=== PATIENT | female | born 1940 | race Caucasian/White ===

== ENCOUNTER 2016-12-30 20:33 | Inpatient (IN) | payer OTHER ==
[~2016-12-30] VITALS: Ht 157.5 cm; Wt 68.6 kg
--- NOTE | ~2016-12-30 | EKG ---
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: Chantelle LONDON : 1940 Requested By: Sid Duffy Order Number: [id number] MD: Cedrick Causey Measurements Intervals [place] Rate: 70 P: 58 ID: 158 QRS: -29 QRSD: 101 T: 55 QT: 396 QTc: 428 Interpretive Statements Sinus rhythm Borderline left axis deviation Abnormal R-wave progression, early transition Minimal ST depression, lateral leads Compared to ECG 12/30/2016 20:37:20 No significant change was found Electronically Signed On 01-01-2017 7:15:18 CDT by Cedrick Causey [email or web address] <ELECTRONICALLY SIGNED> By: Cedrick Causey MD, [facility] 01/01/17 0715 1103 1103 Cedrick Causey MD, [facility] /EPI
--- NOTE | ~2016-12-30 | HC ---
[facility] [place] [address] CONSULTATION Name: EVETTE BROTHERS Room #: 217-P [facility] IN M.R.#: [id number] Admission: 12/30/16 Attend Phys: Sid Duffy MD Discharge: Date of : 42 Report #: [id number] THIS REPORT FOR: //name// CC: Sid Duffy DATE OF SERVICE: 12/31/2016 REASON FOR CONSULTATION: Chest pain. ATTENDING PHYSICIAN: Dr. Duffy. HISTORY OF PRESENT ILLNESS: This is a very pleasant 76-year-old female patient who presented to the Emergency Room due to chest discomfort. The patient states this chest discomfort has been present for 1 week to the point of limiting her activity. She describes it as quite significant, it is at least 6/10 and relieved with rest. She states that it was a fullness sensation, but had a sharp component to it. Upon further questioning, it appears she has been having discomfort even when she was venturing in [place], one episode, she was bicycling and ended up just coasting because it was uncomfortable with the provocation of the symptoms. Upon further questioning, she states that even in the fall, she had some episodes of some "twinges of similar discomfort, but were not long lasting." She did not tell anybody about these episodes. She had no nausea, vomiting, but did have a little bit of shortness of breath. The discomfort was substernal, a fullness sensation associated with dyspnea and it seem to radiate from her anterior chest to her back. She had no nocturnal symptomatology. No palpitations. No dependent or nondependent edema. PAST MEDICAL HISTORY: Significant for, 1. Hypertension. 2. Coronary artery disease having been angioplastied in the distinct past. Most recent assessment was greater than 5 years ago with stress testing. 2. Chronic kidney disease stage I. 3. Left arm melanoma removed. 4. 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 5. Gastroesophageal reflux disease. 6. Meniere disease. 7. Colonic cancer. ALLERGIES: ADHESIVE, LIBRAX, CLINIDIIUM, SULFONAMIDES. MEDICATIONS: At home are spironolactone, aspirin, valsartan, metformin, CoQ10, Centrum Silver, Prilosec, Os-Ren, Lipitor and meclizine. [address] [address] CONSULTATION Name: EVETTE BROTHERS PATY Room #: [address] [place] [address] IN ..#: [id number] Admission: 12/30/16 Attend Phys: Sid Duffy MD Discharge: Date of : 42 Report #: [id number] PAST SURGICAL HISTORY: Significant for: 1. Angioplasties x 3. 2. Bilateral carpal tunnel releases. 3. Multiple skin cancer excisions. 4. Tonsillectomy and adenoidectomy. 5. Hysterectomy with bilateral salpingo-oophorectomy with an AP repair and bladder biopsies. ELECTROCARDIOGRAM: Normal sinus rhythm with some dynamic ST segment changes, but no acute current of injury. LABORATORY DATA: Demonstrated a BUN and creatinine of 19 and 0.9. Troponin of 0.04. H and H are 12.8 and 37.6 with a platelet count of 215,000. RADIOLOGIC: Chest x-ray failed to demonstrate any acute pulmonary process. REVIEW OF SYSTEMS: Except for symptoms previously mentioned and those commensurate with comorbid states, the 10-point review of system is negative. PHYSICAL EXAMINATION: GENERAL: Well-developed, well-nourished white female, resting comfortably in no acute distress. VITAL SIGNS: Noted and reviewed in the chart. HEENT: Normocephalic, atraumatic. Pupils are equal, round, reactive to light and accommodation. Extraocular muscles are intact. Sclerae and conjunctivae are anicteric. NECK: JVD is normal. Carotid upstrokes are bilaterally symmetrical. No bruits are heard. No thyromegaly. No lymphadenopathy. LUNGS: Clear to auscultation. No wheezes, rhonchi or crackles. No CVA tenderness. CARDIAC: Demonstrates a regular rhythm. Normal first and second heart sounds. No ventricular or atrial gallops, no rubs noted. No murmurs. No lifts or heaves, PMI normal. ABDOMEN: Soft, nontender, nondistended. Normal bowel sounds. EXTREMITIES: Without cyanosis, clubbing or edema. Distal pulses are intact. DTR symmetrical. NEUROLOGIC: Cranial nerves 2-12 are grossly normal and symmetrical. PSYCHIATRIC: Alert, oriented with normal affect. SKIN: Warm and dry. IMPRESSION: Chest discomfort, quite suspicious for angina. This is unstable and crescendo in nature. In view of this, I will expedite the diagnosis with proceeding directly to angiography. The risks, complications and alternatives [address] [address] CONSULTATION Name: EVETTE BROTHERS PATY Room #: 217-[facility] IN M.R.#: [id number] Admission: 12/30/16 Attend Phys: Sid Duffy MD Discharge: Date of : 42 Report #: [id number] to cath, angioplasty and conscious sedation have been discussed with the patient. She voices understanding and wishes to proceed. <ELECTRONICALLY SIGNED> By: Delvin Perez MD 01/01/17 2219 1805 2324 Delvin Perez MD /nt
--- NOTE | ~2016-12-30 | EKG ---
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 : 1940 Requested By: Delvin Perez Order Number: [id number] MD: Cedrick Causey Measurements Intervals [place] Rate: 73 P: 48 GA: 166 QRS: -14 QRSD: 95 T: 26 QT: 375 QTc: 414 Interpretive Statements Sinus rhythm Minimal ST depression, anterolateral leads Compared to ECG 12/30/2016 20:37:20 ST (T wave) deviation now present Electronically Signed On 01-01-2017 7:29:21 CDT by Cedrick Causey [email or web address] <ELECTRONICALLY SIGNED> By: Cedrick Causey MD, [facility] 01/01/17 0729 004 Cedrick Causey MD, [facility] /EPI
--- NOTE | ~2016-12-30 | 2DMMODE ---
[place] [address] [facility] [place] [address] 2 D/M-MODE ECHOCARDIOGRAM Name: EVETTE BROTHERS Room #: 217-P ADM IN M.R.#: [id number] Admission: 12/30/16 Attend Phys: Sid Duffy MD Discharge: Date of : 42 Date of Service: 01/01/17 0947 Report #: [id number] THIS REPORT FOR: //name// APPROVED REPORT Study performed: 01/01/2017 08:24:22 EXAM: Comprehensive 2D, Doppler, and color-flow Echocardiogram Patient Location: Bedside Room #: 217 Other Information Study Quality: Adequate Indications CAD Chest Pain Pre-Op 2D Dimensions RVDd: 30.32 mm LVEF(%): 50.10 (>50%) IVSd: 11.58 (7-11mm) LVOT Diam: 19.26 (18-24mm) LVDd: 40.46 mm PWd: 11.54 (7-11mm) Ascending Ao: 28.85 (22-36mm) LVDs: 30.31 (25-40mm) Aortic Root: 25.50 mm IVC: 8.00 mm Khan's LVEF: 50.10 % Volumes Left Atrial Volume (Systole) Single Plane 4CH: 34.24 mL Single Plane 2CH: 48.87 mL LA ESV Index: 27.00 mL/m2 Aortic Valve AoV Peak Ananda.: 2.71 m/s AO Peak Gr.: 30.26 mmHg LVOT Max P.96 mmHg AO Mean Gr.: 14.17 mmHg AO V2 Mean: 1.76 m/s LVOT Max V: 0.70 m/s AO V2 VTI: 51.18 cm CHRISTY Vmax: 0.75 cm2 Mitral Valve E/A Ratio: 0.7 MV Decel. Time: 283.27 ms [facility] [place] [address] 2 D/M-MODE ECHOCARDIOGRAM Name: EVETTE BROTHERS [facility] Room #: 217-P [facility] IN .R.#: [id number] Admission: 12/30/16 Attend Phys: Sid Duffy MD Discharge: Date of : 42 Date of Service: 01/01/17 0947 Report #: [id number] E Max Ananda.: 0.79 m/s MV A Ananda.: 1.16 m/s MV PHT: 82.15 ms IVRT: 121.11 ms Pulmonary Valve PV Peak Ananda.: 0.96 m/s PV Peak Gr.: 3.69 mmHg Pulmonary Vein P Vein S: 0.63 m/s P Vein A: 0.32 m/s P Vein D: 0.61 m/s P Vein A Dur.: 117.6 msec P Vein S/D Ratio: 1.03 Tricuspid Valve RAP Estimate: 5.00 mmHg Left Ventricle The left ventricle is normal size. Borderline concentric left ventricular hypertrophy. The left ventricular systolic function is normal. The left ventricular ejection fraction is within the normal range. LVEF is 55%. Grade I - abnormal relaxation pattern. Right Ventricle The right ventricle is normal size. The right ventricular systolic function is normal. Atria The left atrium size is normal. The right atrium size is normal. Aortic Valve Aortic valve is thickened but has adequate excursion. Trace to mild aortic regurgitation. Mild aortic stenosis. Mitral Valve The mitral valve is normal in structure. Trace mitral regurgitation. No evidence of mitral valve stenosis. Tricuspid Valve The tricuspid valve is normal in structure. Trace tricuspid regurgitation. Pulmonic Valve The pulmonary valve is normal in structure. Trace pulmonic regurgitation. [address] [address] 2 D/M-MODE ECHOCARDIOGRAM Name: VEETTE BROTHERS PATY Room #: 217-P [facility] IN .R.#: [id number] Admission: 12/30/16 Attend Phys: Sid Duffy MD Discharge: Date of : 42 Date of Service: 01/01/17 0947 Report #: [id number] Great Vessels The aortic root is normal in size. The ascending aorta is normal in size. IVC is normal in size and collapses >50% with inspiration. <Conclusion> The left ventricle is normal size. LVEF is 55%. Aortic valve is thickened but has adequate excursion. Trace to mild aortic regurgitation. Mild aortic stenosis. The mitral valve is normal in structure. Trace mitral regurgitation. The tricuspid valve is normal in structure. Trace tricuspid regurgitation. The pulmonary valve is normal in structure. Trace pulmonic regurgitation. <ELECTRONICALLY SIGNED> By: Delvin Perez MD 01/01/1747 6 6 Delvin Perez MD /INF
--- NOTE | ~2016-12-30 | EKG ---
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 : 1940 Requested By: Dav Ace Order Number: [id number] MD: Cedrick Causey Measurements Intervals [place] Rate: 76 P: 42 WV: 132 QRS: -19 QRSD: 78 T: 42 QT: 374 QTc: 421 Interpretive Statements Sinus rhythm Borderline left axis deviation Early R-wave progression Compared to ECG 01/01/2017 00:41:18 ST (T wave) deviation no longer present Electronically Signed On 01-03-2017 16:48:12 CDT by Cedrick Causey [email or web address] <ELECTRONICALLY SIGNED> By: Cedrick Causey MD, [facility] 01/03/17 7598 0745 0745 Cedrick Causey MD, [facility] /EPI
--- NOTE | ~2016-12-30 | O ---
[facility] [place] [address] OPERATIVE REPORT Name: EVETTE BROTHERS Room #: 210-P [facility] IN M.R.#: [id number] Admission: 12/30/16 Attend Phys: Sid Duffy MD Discharge: 01/08/17 Date of : 42 Report #: [id number] THIS REPORT FOR: //name// CC: Delvin Duffy MD DATE OF SERVICE: 01/02/2017 PREOPERATIVE DIAGNOSIS: Coronary artery disease. POSTOPERATIVE DIAGNOSIS: Coronary artery disease. OPERATION: Coronary artery bypass x 5 including left internal mammary artery to left anterior descending artery, saphenous vein to diagonal 1 and diagonal 2 and saphenous vein to posterior descending and posterolateral branches and endoscopic harvest, left greater saphenous vein. SURGEON: Solo Scanlon M.D. FREELANCE ART DIRECTOR: Db. ANESTHESIA: General. INDICATIONS: The patient is a 76-year-old seen for Dr. Sid Duffy and the [facility]iology [facility]. The patient has important 3-vessel coronary artery disease and relatively preserved ventricular function. FINDINGS AND TECHNIQUE: After general anesthesia was established, saphenous vein was harvested using an endoscopic approach and prepared for use as a conduit. Exposure was obtained through median sternotomy. Left internal mammary artery was harvested from chest wall. Pericardial well was made. Cannulation sutures were placed. Heparin was given. Aorta was cannulated. Right atrium was cannulated. Cardioplegia needle was positioned in the aortic root. Retrograde cardioplegic catheter was placed in the coronary sinus. Cardiopulmonary bypass was established. The aorta was cross clamped. Antegrade and retrograde cardioplegia were given. Ice was poured in the pericardial well. The heart was stopped. During electromechanical arrest, the distal anastomoses were performed and end-to-side anastomosis was made between vein and the posterolateral branch of the right coronary. Cold cardioplegia was given. Same segment of vein was sewn in kivh-ct-rzic fashion to the posterior descending branch of the right coronary. Cold cardioplegia was given. A separate segment of vein was sewn [facility] [address] [place] [address] OPERATIVE REPORT Name: EVETTE BROTHERS PATY Room #: 210-P [facility] IN ..#: [id number] Admission: 12/30/16 Attend Phys: Sid Duffy MD Discharge: 01/08/17 Date of : 42 Report #: [id number] end-to-side fashion to second diagonal. Cold cardioplegia was given. Same segment of vein was sewn in amkd-dp-xpxd fashion to first diagonal. Cold cardioplegia was given. Left internal mammary artery was sewn in end-to-side fashion to left anterior descending artery. Patency of this vessel was checked with the temperature technique. Cold cardioplegia was given. Two proximal anastomoses were performed. When these were complete, warm retrograde cardioplegia was given followed by warm continuous blood to the coronary sinus. When this infusion was complete, the crossclamp was removed. De-airing maneuvers were performed. The anastomoses were inspected and found to be satisfactory. As the patient warmed, nice cardiac activity resumed, chest tubes and pacing wires were placed. As the patient warmed, she was weaned from cardiopulmonary bypass. Venous cannula was removed. Protamine was given, the aortic cannula was removed. Flows were measured in the bypass grafts. Flow in the graft to the right side was 18 mL per minute. Flow in the graft to the left side was 45 mL per minute. A good Doppler signal was audible in the internal mammary artery. When hemostasis was satisfactory, chest was irrigated with antibiotic solution and closed in the usual fashion. The patient was taken to the Intensive Care Unit in good condition having tolerated the procedure well. By: 1908 [id number] Solo Scanlon MD /shaheen
--- NOTE | ~2016-12-30 | HC ---
[facility] [place] [address] CONSULTATION Name: EVETTE BROTHERS Room #: 210-P ADM IN M.R.#: [id number] Admission: 12/30/16 Attend Phys: Sid Duffy MD Discharge: Date of : 42 Report #: [id number] THIS REPORT FOR: //name// CC: Sid Duffy DATE OF SERVICE: 01/01/2017 ATTENDING PHYSICIAN: Dr. Duffy. REASON FOR CONSULTATION: Microalbuminuria. HISTORY OF PRESENT ILLNESS: The patient known to our service followed on early basis by Dr. Jorgito Urbina in our office for microalbuminuria. She has known diabetes and hypertension. She has minimal microalbuminuria. She is well controlled on angiotensin-receptor brianne, spironolactone. She was admitted with angina, had a heart catheterization, has multiple high-grade get a coronary bypass tomorrow. PAST MEDICAL HISTORY: She has had previous coronary angioplasty x 3, very remotely 28 years ago. She has had bladder cancer, had a transurethral resection there, has had previous hysterectomy, bilateral carpal tunnel surgeries and some skin cancers. HOME MEDICATIONS: Include spironolactone 25 mg daily, aspirin 81 mg daily, valsartan 320 mg daily, metformin 1000 mg b.i.d., omeprazole 20 mg daily, atorvastatin 40 mg daily. REVIEW OF SYSTEMS: GENERAL: Except for the chest pain, she has been feeling well. EYES: Vision is fine. She has got only cataract. ENT: Hearing okay, swallows okay. No mouth sores or ulcers. ENDOCRINE: Positive for the diabetes. RESPIRATORY: No shortness of breath, pleuritic pain, cough or hemoptysis. CARDIAC: Clear cardiac exertional angina, multiple episodes as mentioned. GASTROINTESTINAL: No nausea, vomiting, diarrhea or bloody stools. GENITOURINARY: Good urinary stream without dysuria, renal stones. NEUROLOGIC: No seizure, syncope or stroke or neuropathy. FAMILY HISTORY: Negative. SOCIAL HISTORY: No smoking. Lives at home with her . Extensive history taken from the electronic medical record. Office records were reviewed from the patient, patient has been at bedside. PHYSICAL EXAMINATION: [facility] [address] [place] [address] CONSULTATION Name: EVETTE BROTHERS Room #: 210-[facility] IN M.R.#: [id number] Admission: 12/30/16 Attend Phys: Sid Duffy MD Discharge: Date of : 42 Report #: [id number] GENERAL: This is a reasonably well-appearing lady in no distress. SKIN: Unremarkable. SKELETAL: Nonobese. HEENT: Extraocular movements are full. No scleral icterus. Hearing and vision intact. Mucous membranes are moist, buccal mucosa benign. NECK: Supple, no carotid bruits. CHEST: Clear to auscultation. HEART: Regular. ABDOMEN: Soft, nontender. EXTREMITIES: No edema. Pulses intact. LABORATORY DATA: Creatinine 0.9. UA, benign. ASSESSMENT AND PLAN: 1. Microalbuminuria. She has normal renal function with microalbuminuria. She is at little additional risk with her heart surgery, of course, she is at some risk with her diabetes, hypertension, etc. We will certainly follow along, although expected her to do well. 2. Severe coronary artery disease. She will get coronary bypass. 3. Diabetes mellitus. 4. Hypertension. <ELECTRONICALLY SIGNED> By: Micheal Dominique MD 01/05/17 1012 1206 39 Aiden Leong MD /nt
--- NOTE | ~2016-12-30 | CATHLAB ---
[facility] [place] [address] INVASIVE PROCEDURE REPORT Name: EVETTE BROTHERS Room #: 217-P [facility] IN ..#: [id number] Admission: 12/30/16 Attend Phys: Sid Duffy MD Discharge: Date of : 42 Date of Service: 12/31/162141 Report #: [id number] THIS REPORT FOR: //name// CC: Sid Duffy DATE OF SERVICE: 12/31/2016 INDICATIONS: This is a 76-year-old female patient with crescendo chest pain consistent with unstable angina. PROCEDURES: 1. Left heart catheterization. 2. Left and right coronary angiography. 3. Measurement of left ventricular end diastolic pressures. 4. Selective angiography of the right iliac artery. 5. Supervision of conscious sedation. HEALTH INSURANCE AGENT: Delvin Perez M.D. BRIEF DESCRIPTION OF PROCEDURE: After informed consent was obtained, the patient was brought to the cardiac catheterization laboratory in stable condition. The patient's right groin was prepped and draped in the usual sterile manner after which lidocaine was then instilled. Utilizing a modified Seldinger technique, the right femoral artery was then accessed. Under fluoroscopic visualization using selective coronary catheters, the right and left coronaries were opacified and visualized. The left ventriculogram was likewise imaged per standard protocol with EDP being measured. Subsequent to this, the sheath was removed, hemostasis achieved. The patient tolerated the procedure well. There were no complications. FINDINGS: 1. RHYTHM: The patient's rhythm was sinus throughout the entire procedure. 2. HEMODYNAMICS: a. Aortic pressure 136/74. b. Left ventricular end diastolic pressures 20-25. 3. FLUOROSCOPY: Under fluoroscopic visualization, there was extensive calcific plaquing of the epicardial coronary arteries. No calcific plaquing on the valvular or intramyocardial structures of the heart. 4. ANGIOGRAPHY: a. Left main is of normal origin and caliber, bifurcates left anterior descending and left circumflex is free of high-grade disease. b. Left anterior descending is a moderate caliber type 3 vessel which has a 70% lesion in the proximal mid segment. The first diagonal branch is a moderate caliber vessel, which courses in the anterior interventricular sulcus, had a 99% ostial lesion. Septal perforators were identified without significant high-grade lesions. Left anterior descending continues in the [facility] [address] [place] [address] INVASIVE PROCEDURE REPORT Name: EVETTE BROTHERS Room #: 217-P [facility] IN .R.#: [id number] Admission: 12/30/16 Attend Phys: Sid Duffy MD Discharge: Date of : 42 Date of Service: 12/31/16 214 Report #: [id number] interventricular sulcus without significant high-grade lesions noted as it hooks the apex and terminates in the posterior aspect of the left ventricle. c. Left circumflex is a small nondominant vessel. It only has luminal irregularities noted. d. Right coronary artery is a large caliber vessel, which is of normal origin. It is dominant and proceeds in the AV groove. Prior to the acute margin, there is an eccentric high grade lesion of approximately 95-99%. There is some haziness, which is consistent with some degree of thrombus. The vessel then reconstitutes itself and continues posteriorly giving rise to posterior descending artery and large posterior wall circulation without high-grade obstructive lesions. e. Iliac artery angiography: The vessel is imaged retrograde and showed a complete occlusion in the junction of the iliac and femoral arteries. IMPRESSION: 1. Coronary artery disease, severe, 3-vessel. 2. Totally occluded right iliac artery. 3. Abnormal hemodynamics with elevated left ventricular end-diastolic pressures. 4. In view of the patient's significant calcified high-grade disease, it is felt that surgically be pursued. <ELECTRONICALLY SIGNED> By: Delvin Perez MD 01/01/17 2219 2142 0228 Delvin Perez MD /nt
--- NOTE | ~2016-12-30 | HC ---
[facility] [place] [address] CONSULTATION Name: EVETTE BROTHERS Room #: 217-P ADM IN M.R.#: [id number] Admission: 12/30/16 Attend Phys: Sid Duffy MD Discharge: Date of : 44 Report #: [id number] THIS REPORT FOR: //name// CC: Sid Duffy DATE OF SERVICE: 01/01/2017 We were asked by Dr. Duffy and (Dr. Perez) see the patient. HISTORY OF PRESENT ILLNESS: The patient is a 76-year-old with coronary artery disease. The patient was admitted through the emergency department on 12/30/2016. The patient has had severe intermittent chest pain described as mid sternal radiating to the abdomen and then back to the chest. The patient initially thought that this was indigestion, but when it persisted on , the patient it was cardiac and came to the emergency department. The patient states that she has had difficulty with shortness of breath on exertion recently. The patient cannot climb a flight of stairs without shortness of breath and some chest discomfort. PAST MEDICAL HISTORY: Significant for coronary artery disease with angioplasty (without stent placement) in the past at [facility]. The patient also has diabetes, hypertension, and hypercholesterolemia. The patient was treated for bladder cancer with BCG and is due for an instillation. MEDICATIONS AT HOME: Includes spironolactone, aspirin, losartan, valsartan, metformin, ubidecarenone, multivitamins, omeprazole, calcium, vitamin D, meclizine, and atorvastatin. ALLERGIES: ADHESIVE causes blisters, CHLORDIAZEPOXIDE, CLIDINIUM, SULFA, and CODEINE. SOCIAL HISTORY: The patient is a nonsmoker. 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 FAMILY HISTORY: Positive for coronary artery disease. Father in his mid 60s and a brother in his 50s of coronary artery disease. REVIEW OF SYSTEMS: CONSTITUTIONAL: No fever, chills, or weight change. EYES: No eye pain, visual change, or wears glasses. HENT: No hearing changes, nasal or ear drainage, neck pain, or sore throat. RESPIRATORY: Denies shortness of breath, sputum production. CARDIAC: As mentioned angina, fatigue, and shortness of breath on exertion. GASTROINTESTINAL: No nausea, vomiting, diarrhea, or blood. GENITOURINARY: No burning, frequency, or urgency. [facility] [address] [place] [address] CONSULTATION Name: EVETTE BROTHERS Room #: 217-P [facility] IN .R.#: [id number] Admission: 12/30/16 Attend Phys: Sid Duffy MD Discharge: Date of : 44 Report #: [id number] MUSCULOSKELETAL: No bone or joint pain. SKIN: No rash or infection. NEUROLOGIC: No motor or sensory dysfunction. No headache. PHYSICAL EXAMINATION: VITAL SIGNS: Temperature 37, pulse rate 79, respiratory rate 20, blood pressure 139/92, and O2 sat 99. GENERAL: The patient is an elderly looking woman who is lying in bed with no particular discomfort, somewhat deconditioned appearing. HEENT: No scleral icterus. No arcus. Pupils are equal, round, and reactive. NECK: No mass. No bruit. CHEST: Clear to auscultation. HEART: Rhythm regular with an aortic systolic murmur grade 1/6. ABDOMEN: Soft, no mass, no tenderness. EXTREMITIES: No clubbing, cyanosis, or edema. 1-2+ popliteal pulses bilaterally. No obvious saphenous vein problems. SKIN: No rash or infection. NEUROLOGIC: No motor or sensory dysfunction. MUSCULOSKELETAL: No bone or joint deformity or dyssymmetry of significant. PSYCHIATRIC: Shows insight into problem and seems quite aware of what is going on and appropriate. ASSESSMENT: The patient has coronary artery disease, catheterization demonstrated severe left anterior descending, diagonal and right coronary stenosis. Circumflex is nondominant and has trivial disease. No assessment of left ventricular function is available at this time, but an echo is pending. We have recommended coronary artery bypass surgery. Risks and details of this were discussed. Options and alternatives were reviewed. We note the patient is on Integrilin and heparin and some planning will need to be done for surgery. We will try to arrange the time with the operating room and failing this, we will try to get the patient treated appropriately. Thank you for the consult. By: [id number] [id number] Solo Scanlon MD /nt
--- NOTE | ~2016-12-30 | EKG ---
[place] [address] [facility] [place] [address] ELECTROCARDIOGRAM REPORT Name: EVETTE BROTHERS Room #: 312-P ADM IN M.R.#: [id number] Admission: 12/30/16 Attend Phys: Sid Duffy MD Discharge: Date of : 42 Report #: [id number] THIS REPORT FOR: //name// [facility] ED Test Date: 2016-12-30 Test Time: 20:37:20 Pat Name: EVETTE BROTHERS Department: Room: [facility] Gender: F Doctor Of Chiropractic: CRYSTAL : 1940 Requested By: Scarlet Parekh Order Number: [id number] MD: Cedrick Causey Measurements Intervals [place] Rate: 88 P: 54 AL: 165 QRS: -20 QRSD: 89 T: 71 QT: 354 QTc: 429 Interpretive Statements Sinus rhythm Probable left atrial enlargement Borderline left axis deviation Nonspecific repol abnormality Compared to ECG 02/29/2016 08:19:[address] segment abnormality is more pronounced Electronically Signed On 12-31-2016 7:57:04 CDT by Cedrick Causey [email or web address] <ELECTRONICALLY SIGNED> By: Cedrick Causey MD, [facility] 12/31/16 0757 36 36 Cedrick Causey MD, [facility] /EPI
--- NOTE | ~2016-12-30 | EKG ---
[address] [employer] [place] [address] ELECTROCARDIOGRAM REPORT Name: EVETTE BROTHERS Room #: 244-P ADM IN M.R.#: [id number] Admission: 12/30/16 Attend Phys: Sid Duffy MD Discharge: Date of : 42 Report #: [id number] THIS REPORT FOR: //name// [facility] Test Date: 2017-01-02 Test Time: 14:50:46 Pat Name: EVETTE BROTHERS Department: Room: 244 Gender: F Mumps Developer: Harpreet MCCORMACK : 1940 Requested By: Dav Ace Order Number: [id number] MD: Cedrick Causey Measurements Intervals [place] Rate: 82 P: 60 [place]: 184 QRS: -6 QRSD: 76 T: 42 QT: 373 QTc: 436 Interpretive Statements Sinus rhythm Low voltage, extremity leads Abnormal R-wave progression, early transition Minimal ST depression, anterior leads Compared to ECG 01/01/2017 00:41:18 ST (T wave) deviation still present Electronically Signed On 01-03-2017 16:40:37 CDT by Cedrick Causey [email or web address] <ELECTRONICALLY SIGNED> By: Cedrick Causey MD, [facility] 01/03/17 1640 1450 1450 Cedrick Causey MD, [facility] /EPI
[~2016-12-30 20:33] MED LIST: ALDACTONE25 MG PO; ALTACE10 MG PO; ASA81BEC PO; ATORVASTATIN CA40 MG PO; CALCIUM 500 +1 EAC5 PO; CENTRUM SILVER1 EAC4 PO; CIPRO500 MG PO; CO Q-10100 M1 PO; COLACE100 MG PO; COQ-10100 MG PO; DIOVAN320 MG PO; FIBER TABS625 MG PO; FISH OIL 1,001000 M2 PO; GAS RELIEF 8080 MG PO; GLUCOPHAGE1000 MG PO; MECLIZINE HCL25 MG PO; PREMARIN VAGI42.5 G1 TOP; PRILOSEC 20 MG20 MG PO; TRAMADOL 50 MG50 MG PO
[2016-12-30 20:34] VITALS: BP 204/104
[2016-12-30 21:20] LABS: ABSOLUTE NEUTROPHILS 3.5 thou/uL (1.4-8.2); BASOPHILS 0.7 % (0.0-2.0); EOSINOPHILS 3.2 % (0.0-3.0); HEMATOCRIT 37.6 % (37.0-47.0); HEMOGLOBIN 12.8 gm/dL (12.0-15.0); LYMPHOCYTES 34.8 % (24.0-44.0); MCHC 34.1 g/dL (28.0-37.0); MCV 90.8 fL (80.0-100.0); MONOCYTES 10.3 % (1.0-8.0); PLATELET COUNT 215 thou/uL (150-400); RBC 4.14 mil/uL (4.20-5.00); RDW 12.9 % (10.5-14.5); WBC 6.9 thou/uL (4.0-11.0)
[2016-12-30 21:23] LABS: MANUAL DIFF NO
[2016-12-30 21:29] LABS: ANION GAP 10 mmol/L (7-16); BUN 19 mg/dL (7-18); CALCIUM 9.7 mg/dL (8.5-10.1); CHLORIDE 91 mmol/L (98-107); CO2 29 mmol/L (21-32); CREATININE 0.9 mg/dL (0.6-1.0); GLUCOSE 159 mg/dL (74-106); POTASSIUM 4.2 mmol/L (3.5-5.1); SODIUM 130 mmol/L (136-145)
[2016-12-30 21:37] LABS: TROPONIN-I < 0.04 ng/mL (<0.04-0.07)
[2016-12-30 23:59] VITALS: BP 137/69
[2016-12-31] VITALS (10 sets, daily range): BP systolic 125–167; BP diastolic 44–107
[2016-12-31 13:51] LABS: URINE BILIRUBIN NEGATIVE (Negative); URINE BLOOD NEGATIVE (Negative); URINE COLOR YELLOW; URINE GLUCOSE-RANDOM* NEGATIVE (Negative); URINE KETONES NEGATIVE (Negative); URINE NITRITE NEGATIVE (Negative); URINE PROTEIN (DIPSTICK) NEGATIVE (Negative); URINE UROBILINOGEN 0.2 E.U./dl (0.2-1.0)
[2016-12-31 17:55] LABS: INR 1.1; PROTIME 11.1 Seconds (9.3-11.4)
[2017-01-01] VITALS (9 sets, daily range): BP systolic 59–153; BP diastolic 34–92
[2017-01-01 08:12] LABS: ANION GAP 8 mmol/L (7-16); BUN 13 mg/dL (7-18); CALCIUM 8.6 mg/dL (8.5-10.1); CHLORIDE 98 mmol/L (98-107); CHOLESTEROL 140 mg/dL (<200); CO2 27 mmol/L (21-32); CREATININE 0.9 mg/dL (0.6-1.0); GLUCOSE 121 mg/dL (74-106); HDL CHOLESTEROL 63 mg/dL (>40); LDL CHOLESTEROL 60 mg/dL (<100); POTASSIUM 4.1 mmol/L (3.5-5.1); SODIUM 133 mmol/L (136-145); TC:HDL 2.2 Ratio (Not establshd); TRIGLYCERIDE 85 mg/dL (<150); TROPONIN-I < 0.04 ng/mL (<0.04-0.07); VLDL 17 mg/dL (<40)
[2017-01-01 08:13] LABS: SERUM ASSESSMENT 311
[2017-01-01 13:27] LABS: HEMATOCRIT 36.9 % (37.0-47.0); HEMOGLOBIN 12.9 gm/dL (12.0-15.0); MCH 31.8 pg (26.0-34.0); MCHC 35.1 g/dL (28.0-37.0); MCV 90.7 fL (80.0-100.0); RBC 4.06 mil/uL (4.20-5.00); RDW 13.1 % (10.5-14.5); WBC 6.3 thou/uL (4.0-11.0)
[2017-01-01 13:44] LABS: ALBUMIN 3.7 g/dL (3.4-5.0); CALCIUM 8.8 mg/dL (8.5-10.1); CREATININE 0.9 mg/dL (0.6-1.0); POTASSIUM 3.7 mmol/L (3.5-5.1); TOTAL BILIRUBIN 0.7 mg/dL (<0.1-1.0); TOTAL PROTEIN 7.2 g/dL (6.4-8.2)
[2017-01-01 20:07] LABS: URINE BILIRUBIN NEGATIVE (Negative); URINE BLOOD 2+ (Negative); URINE COLOR YELLOW; URINE GLUCOSE-RANDOM* 1+ (Negative); URINE KETONES NEGATIVE (Negative); URINE LEUKOCYTES-REFLEX NEGATIVE (Negative); URINE PROTEIN (DIPSTICK) TRACE (Negative); URINE SPECIFIC GRAVITY 1.015 (1.003-1.035); URINE UROBILINOGEN 0.2 E.U./dl (0.2-1.0)
[2017-01-01 20:19] LABS: CASTS None Seen /LPF (None Seen); CRYSTALS None Seen /LPF (None Seen); SQUAMOUS 0-3 Few /LPF (0-3); URINE WBC-REFLEX 0-5 Rare /HPF (0-5)
[2017-01-02] VITALS (27 sets, daily range): BP systolic 91–156; BP diastolic 54–94
[2017-01-02 03:18] LABS: GLYCOHEMOGLOBIN (HGB A1C) 6.1 % (4.8-5.6)
[2017-01-02 04:13] LABS: ANION GAP 9 mmol/L (7-16); BUN 12 mg/dL (7-18); CALCIUM 9.2 mg/dL (8.5-10.1); CHLORIDE 101 mmol/L (98-107); CO2 26 mmol/L (21-32); CREATININE 0.8 mg/dL (0.6-1.0); GLUCOSE 134 mg/dL (74-106); POTASSIUM 4.3 mmol/L (3.5-5.1); SODIUM 136 mmol/L (136-145); TROPONIN-I < 0.04 ng/mL (<0.04-0.07)
[2017-01-02 13:08] LABS: HEMATOCRIT 22.5 % (37.0-47.0); MCH 31.4 pg (26.0-34.0); MCV 92.3 fL (80.0-100.0); RBC 2.44 mil/uL (4.20-5.00); RDW 12.6 % (10.5-14.5); WBC 11.6 thou/uL (4.0-11.0)
[2017-01-02 13:16] LABS: HEMOGLOBIN 7.7 gm/dL (12.0-15.0)
[2017-01-02 13:23] LABS: APTT 27.5 Seconds (24.5-32.8); FIBRINOGEN 188.3 mg/dL (210-360); INR 1.3; PROTIME 13.6 Seconds (9.3-11.4)
[2017-01-02 13:47] LABS: POC BE -2 mmol/L (-2.0 to +3.0); POC CA IONIZED 5.1 mg/dL (4.5-5.3); POC FiO2 100 %; POC GLUCOSE 167 mg/dL (70-99); POC HCO3 22.9 mmol/L (22.0-26.0); POC HEMOGLOBIN 8.8 g/dL (12.0-15.0); POC POTASSIUM 4.4 mmol/L (3.5-5.1); POC SODIUM 132 mmol/L (136-145); POC pCO2 39.1 mmHg (35.0-45.0); POC pH 7.375 (7.360-7.450)
[2017-01-02 13:47] LABS: POC BE -4 mmol/L (-2.0 to +3.0); POC CA IONIZED 4.3 mg/dL (4.5-5.3); POC FiO2 100 %; POC GLUCOSE 126 mg/dL (70-99); POC HCO3 22.5 mmol/L (22.0-26.0); POC HEMOGLOBIN 7.8 g/dL (12.0-15.0); POC SODIUM 128 mmol/L (136-145)
[2017-01-02 13:47] LABS: POC BE 2 mmol/L (-2.0 to +3.0); POC CA IONIZED 4.2 mg/dL (4.5-5.3); POC FiO2 80 %; POC GLUCOSE 134 mg/dL (70-99); POC HCO3 25.9 mmol/L (22.0-26.0); POC HEMOGLOBIN 6.8 g/dL (12.0-15.0); POC POTASSIUM 4.7 mmol/L (3.5-5.1); POC SODIUM 129 mmol/L (136-145); POC pCO2 37.6 mmHg (35.0-45.0); POC pH 7.446 (7.360-7.450)
[2017-01-02 13:47] LABS: POC BE 1 mmol/L (-2.0 to +3.0); POC FiO2 100 %; POC GLUCOSE 145 mg/dL (70-99); POC HCO3 25.6 mmol/L (22.0-26.0); POC HEMOGLOBIN 6.5 g/dL (12.0-15.0); POC POTASSIUM 4.8 mmol/L (3.5-5.1); POC SODIUM 127 mmol/L (136-145); POC pCO2 40.4 mmHg (35.0-45.0)
[2017-01-02 13:47] LABS: POC BE 3 mmol/L (-2.0 to +3.0); POC CA IONIZED 4.1 mg/dL (4.5-5.3); POC FiO2 100 %; POC GLUCOSE 149 mg/dL (70-99); POC HCO3 26.7 mmol/L (22.0-26.0); POC HEMOGLOBIN 6.8 g/dL (12.0-15.0); POC POTASSIUM 4.6 mmol/L (3.5-5.1); POC SODIUM 128 mmol/L (136-145); POC pCO2 35.7 mmHg (35.0-45.0); POC pH 7.482 (7.360-7.450)
[2017-01-02 13:47] LABS: POC BE 0 mmol/L (-2.0 to +3.0); POC CA IONIZED 4.3 mg/dL (4.5-5.3); POC FiO2 100 %; POC GLUCOSE 128 mg/dL (70-99); POC HCO3 25.8 mmol/L (22.0-26.0); POC HEMOGLOBIN 7.8 g/dL (12.0-15.0); POC POTASSIUM 3.9 mmol/L (3.5-5.1); POC SODIUM 128 mmol/L (136-145); POC pCO2 51.2 mmHg (35.0-45.0); POC pH 7.311 (7.360-7.450)
[2017-01-02 13:47] LABS: POC BE -1 mmol/L (-2.0 to +3.0); POC CA IONIZED 5.5 mg/dL (4.5-5.3); POC FiO2 100 %; POC GLUCOSE 144 mg/dL (70-99); POC HCO3 24.1 mmol/L (22.0-26.0); POC HEMOGLOBIN 7.1 g/dL (12.0-15.0); POC POTASSIUM 4.7 mmol/L (3.5-5.1); POC SODIUM 130 mmol/L (136-145); POC pCO2 37.8 mmHg (35.0-45.0); POC pH 7.412 (7.360-7.450)
[2017-01-02 13:47] LABS: POC BE 1 mmol/L (-2.0 to +3.0); POC CA IONIZED 4.7 mg/dL (4.5-5.3); POC FiO2 100 %; POC GLUCOSE 151 mg/dL (70-99); POC HCO3 24.2 mmol/L (22.0-26.0); POC HEMOGLOBIN 10.9 g/dL (12.0-15.0); POC POTASSIUM 3.9 mmol/L (3.5-5.1); POC SODIUM 131 mmol/L (136-145); POC pCO2 29.4 mmHg (35.0-45.0); POC pH 7.525 (7.360-7.450)
[2017-01-02 13:47] LABS: POC BE 0 mmol/L (-2.0 to +3.0); POC CA IONIZED 4.7 mg/dL (4.5-5.3); POC FiO2 100 %; POC GLUCOSE 138 mg/dL (70-99); POC HCO3 25.3 mmol/L (22.0-26.0); POC HEMOGLOBIN 9.9 g/dL (12.0-15.0); POC POTASSIUM 3.8 mmol/L (3.5-5.1); POC SODIUM 130 mmol/L (136-145); POC pCO2 41.1 mmHg (35.0-45.0); POC pH 7.398 (7.360-7.450)
[2017-01-02 14:02] LABS: ABG SAMPLE TYPE ARTERIAL; HCO3 19.5 mmol/L (22.0-26.0); LACTATE 1.38 mmol/L (0.5-2.0); O2(CT) 13.7 mL/dL (15.0-23.0); O2Hb 96.8 % (92.0-98.0); PCO2 38.9 mmHg (35.0-45.0); PO2 135.4 mmHg (80.0-100.0); sO2 98.5 % (92.0-98.0); tCO2 20.7 mmol/L (24.0-30.0)
[2017-01-02 14:03] LABS: ABG COMMENT A/C; STICK SITE LINE; TIDAL VOLUME 450 ml; pH 7.319 (7.360-7.450)
[2017-01-02 14:12] LABS: HEMATOCRIT 27.2 % (37.0-47.0); HEMOGLOBIN 9.3 gm/dL (12.0-15.0); MCH 31.5 pg (26.0-34.0); MCHC 34.1 g/dL (28.0-37.0); MCV 92.4 fL (80.0-100.0); RBC 2.95 mil/uL (4.20-5.00); RDW 12.8 % (10.5-14.5); WBC 11.8 thou/uL (4.0-11.0)
[2017-01-02 14:25] LABS: CALCIUM 8.5 mg/dL (8.5-10.1); CREATININE 0.7 mg/dL (0.6-1.0); POTASSIUM 4.5 mmol/L (3.5-5.1)
[2017-01-02 18:03] LABS: ABG SAMPLE TYPE ARTERIAL; BE(vivo) -5.2 mmol/L (-2 to +3); HCO3 19.9 mmol/L (22.0-26.0); LACTATE 3.12 mmol/L (0.5-2.0); O2(CT) 12.7 mL/dL (15.0-23.0); O2Hb 96.7 % (92.0-98.0); PCO2 36.9 mmHg (35.0-45.0); PO2 135.4 mmHg (80.0-100.0); pH 7.349 (7.360-7.450); sO2 98.6 % (92.0-98.0)
[2017-01-02 18:04] LABS: HEMATOCRIT 23.8 % (37.0-47.0); HEMOGLOBIN 8.2 gm/dL (12.0-15.0); MCH 31.7 pg (26.0-34.0); MCHC 34.6 g/dL (28.0-37.0); MCV 91.8 fL (80.0-100.0); RBC 2.59 mil/uL (4.20-5.00); RDW 12.9 % (10.5-14.5); WBC 12.3 thou/uL (4.0-11.0)
[2017-01-02 18:05] LABS: FIO2 50 %; STICK SITE LINE; TIDAL VOLUME 450 ml
[2017-01-02 18:09] LABS: ABG SAMPLE TYPE VENOUS; BE(vivo) -4.1 mmol/L (-2 to +3); LACTATE 3.13 mmol/L (0.5-2.0); O2Hb VENOUS 64.8 (65.0-85.0); PCO2 VENOUS 45.3 mmHg (41.0-51.0); PO2 VENOUS 37.5 mmHg (35.0-45.0); STICK SITE LINE; sO2 VENOUS 65.7 % (65.0-85.0); tCO2 23.4 mmol/L (24.0-30.0)
[2017-01-02 18:10] LABS: TIDAL VOLUME 12 ml
[2017-01-02 18:21] LABS: CALCIUM 8.1 mg/dL (8.5-10.1); CREATININE 0.9 mg/dL (0.6-1.0); POTASSIUM 3.9 mmol/L (3.5-5.1)
[2017-01-02 18:54] LABS: ABG SAMPLE TYPE ARTERIAL; BE(vivo) -4.7 mmol/L (-2 to +3); HCO3 20.1 mmol/L (22.0-26.0); LACTATE 2.61 mmol/L (0.5-2.0); O2(CT) 12.1 mL/dL (15.0-23.0); O2Hb 97.1 % (92.0-98.0); PCO2 35.9 mmHg (35.0-45.0); PO2 142.4 mmHg (80.0-100.0); pH 7.367 (7.360-7.450); sO2 98.8 % (92.0-98.0); tCO2 21.3 mmol/L (24.0-30.0)
[2017-01-02 18:55] LABS: Pressure Support 8 cm H20; STICK SITE LINE
[2017-01-02 21:00] LABS: ABG SAMPLE TYPE ARTERIAL; BE(vivo) -2.7 mmol/L (-2 to +3); Face Shield 40 %; HCO3 21.7 mmol/L (22.0-26.0); LACTATE 2.31 mmol/L (0.5-2.0); O2(CT) 12.1 mL/dL (15.0-23.0); O2Hb 95.9 % (92.0-98.0); PCO2 35.6 mmHg (35.0-45.0); PO2 105.1 mmHg (80.0-100.0); STICK SITE LINE; pH 7.402 (7.360-7.450); sO2 97.9 % (92.0-98.0); tCO2 22.7 mmol/L (24.0-30.0)
[2017-01-03] VITALS (7 sets, daily range): BP systolic 114–156; BP diastolic 60–80
[2017-01-03 04:48] LABS: HEMATOCRIT 23.1 % (37.0-47.0); MCHC 34.7 g/dL (28.0-37.0); MCV 92.2 fL (80.0-100.0); RBC 2.5 mil/uL (4.20-5.00); RDW 13.1 % (10.5-14.5); WBC 8.7 thou/uL (4.0-11.0)
[2017-01-03 05:01] LABS: CALCIUM 8.5 mg/dL (8.5-10.1); CREATININE 0.8 mg/dL (0.6-1.0); POTASSIUM 3.9 mmol/L (3.5-5.1)
[2017-01-03] MEDS ORDERED: METFORMIN HCL500 MG PO (09:45)
[2017-01-04] VITALS (26 sets, daily range): BP systolic 123–178; BP diastolic 62–82
[2017-01-04 08:05] LABS: HEMATOCRIT 21.8 % (37.0-47.0); HEMOGLOBIN 7.7 gm/dL (12.0-15.0); MCH 32.3 pg (26.0-34.0); MCHC 35.5 g/dL (28.0-37.0); RBC 2.4 mil/uL (4.20-5.00); RDW 13.1 % (10.5-14.5); WBC 7.1 thou/uL (4.0-11.0)
[2017-01-04 08:23] LABS: CALCIUM 8.3 mg/dL (8.5-10.1); CREATININE 0.8 mg/dL (0.6-1.0); POTASSIUM 3.8 mmol/L (3.5-5.1)
[2017-01-05 04:13] VITALS: BP 132/77
[2017-01-05 04:33] LABS: HEMATOCRIT 20.4 % (37.0-47.0); HEMOGLOBIN 7.1 gm/dL (12.0-15.0); MCH 31.7 pg (26.0-34.0); MCHC 34.8 g/dL (28.0-37.0); MCV 91.2 fL (80.0-100.0); RBC 2.24 mil/uL (4.20-5.00); RDW 13.2 % (10.5-14.5); WBC 6.8 thou/uL (4.0-11.0)
[2017-01-05 05:05] LABS: % SATURATION 13 % (20-39); IRON 22 ug/dL (50-170); TIBC 167 ug/dL (250-450); UIBC 145 ug/dL
[2017-01-05 08:18] VITALS: BP 139/84
[2017-01-05 11:36] VITALS: BP 101/59
[2017-01-05 16:26] VITALS: BP 123/77
[2017-01-05 20:26] VITALS: BP 149/69
[2017-01-06 04:27] VITALS: BP 116/66
[2017-01-06 06:33] LABS: HEMATOCRIT 20.9 % (37.0-47.0); HEMOGLOBIN 7.3 gm/dL (12.0-15.0); MCH 31.8 pg (26.0-34.0); MCV 90.8 fL (80.0-100.0); RBC 2.3 mil/uL (4.20-5.00); RDW 12.9 % (10.5-14.5)
[2017-01-06 06:55] LABS: ALBUMIN 3.1 g/dL (3.4-5.0); CALCIUM 8.3 mg/dL (8.5-10.1); CREATININE 0.8 mg/dL (0.6-1.0); PHOSPHORUS 2.7 mg/dL (2.5-4.9); POTASSIUM 3.8 mmol/L (3.5-5.1)
[2017-01-06 12:57] VITALS: BP 101/60
[2017-01-06 16:19] VITALS: BP 103/65
[2017-01-06 20:05] VITALS: BP 139/60
[2017-01-07 03:16] LABS: MCH 31.7 pg (26.0-34.0); MCV 90.6 fL (80.0-100.0); RBC 2.16 mil/uL (4.20-5.00); RDW 12.9 % (10.5-14.5); WBC 6.8 thou/uL (4.0-11.0)
[2017-01-07 03:28] LABS: ALBUMIN 2.8 g/dL (3.4-5.0); CALCIUM 8.2 mg/dL (8.5-10.1); CREATININE 0.9 mg/dL (0.6-1.0); PHOSPHORUS 2.8 mg/dL (2.5-4.9); POTASSIUM 3.6 mmol/L (3.5-5.1)
[2017-01-07 04:08] LABS: HEMOGLOBIN 6.9 gm/dL (12.0-15.0)
[2017-01-07 04:09] LABS: HEMATOCRIT 19.6 % (37.0-47.0)
[2017-01-07 04:35] VITALS: BP 154/60
[2017-01-07 08:47] VITALS: BP 102/64; BP 142/71
[2017-01-07 11:43] VITALS: BP 99/63
[2017-01-07 14:01] LABS: HEMOGLOBIN 10.1 gm/dL (12.0-15.0)
[2017-01-07 15:46] VITALS: BP 147/72
[2017-01-07 19:39] VITALS: BP 152/75
[2017-01-07 23:39] VITALS: BP 103/65
[2017-01-08 02:42] VITALS: BP 153/76
[2017-01-08 02:51] LABS: HEMATOCRIT 23.6 % (37.0-47.0); HEMOGLOBIN 8.3 gm/dL (12.0-15.0); MCH 31.5 pg (26.0-34.0); MCV 89.8 fL (80.0-100.0); RBC 2.62 mil/uL (4.20-5.00); RDW 13.6 % (10.5-14.5); WBC 8.2 thou/uL (4.0-11.0)
[2017-01-08 03:05] LABS: ALBUMIN 2.9 g/dL (3.4-5.0); CALCIUM 8.5 mg/dL (8.5-10.1); CREATININE 0.9 mg/dL (0.6-1.0)
[2017-01-08 07:30] VITALS: BP 134/77
[2017-01-08 09:59] VITALS: BP 154/77
[2017-01-08 10:41] VITALS: BP 154/77
[2017-01-08 11:25] VITALS: BP 122/75
[2017-01-08] MEDS ORDERED: LOPRESSOR25 PO (12:27)
[2017-01-08] MEDS ORDERED: PACERONE 200 M200 M1 PO (12:27)
== END 2017-01-08 15:57 | disposition home health service (06) | DRG 234 ==
LOC: ER 20:33 → 3N 22:17 → EROBS 22:17 → 3N 12-31 00:11 → 2N 12-31 16:25 → TBA 01-02 07:35 → ICU 01-02 14:07 → 2N 01-04 09:43
PROVIDERS: Emergency Medicine; Internal Medicine; Internal Medicine Nephrology; Physician Assistant; Surgery Vascular Surgery; Thoracic Surgery (Cardiothoracic Vascular Surgery)
PROC: 4A023N7 Measurement of Cardiac Sampling and Pressure, Left Heart, Percutaneous Approach (ICD-10-PCS; principal; 2016-12-31)
PROC: 5A1221Z Performance of Cardiac Output, Continuous (ICD-10-PCS; 2017-01-02)
PROC: B41F1ZZ Fluoroscopy of Right Lower Extremity Arteries using Low Osmolar Contrast (ICD-10-PCS; 2017-01-02)
PROC: B2111ZZ Fluoroscopy of Multiple Coronary Arteries using Low Osmolar Contrast (ICD-10-PCS; 2017-01-02)
PROC: 06BQ0ZZ Excision of Left Saphenous Vein, Open Approach (ICD-10-PCS; 2017-01-02)
PROC: 021309W Bypass Coronary Artery, Four or More Arteries from Aorta with Autologous Venous Tissue, Open Approach (ICD-10-PCS; 2017-01-02)
PROC: 02100Z9 Bypass Coronary Artery, One Artery from Left Internal Mammary, Open Approach (ICD-10-PCS; 2017-01-02)
PROC: 03HB33Z Insertion of Infusion Device into Right Radial Artery, Percutaneous Approach (ICD-10-PCS; 2017-01-02)
PROC: 02HV33Z Insertion of Infusion Device into Superior Vena Cava, Percutaneous Approach (ICD-10-PCS; 2017-01-02)
DX: I25.110 Atherosclerotic heart disease of native coronary artery with unstable angina pectoris (principal); E87.1 Hypo-osmolality and hyponatremia; D62 Acute posthemorrhagic anemia; E44.1 Mild protein-calorie malnutrition; K21.9 Gastro-esophageal reflux disease without esophagitis; E78.5 Hyperlipidemia, unspecified; E78.00 Pure hypercholesterolemia, unspecified; E11.22 Type 2 diabetes mellitus with diabetic chronic kidney disease; I12.9 Hypertensive chronic kidney disease with stage 1 through stage 4 chronic kidney disease, or unspecified chronic kidney disease; N18.1 Chronic kidney disease, stage 1; I25.10 Atherosclerotic heart disease of native coronary artery without angina pectoris; R80.9 Proteinuria, unspecified; C67.9 Malignant neoplasm of bladder, unspecified; I65.21 Occlusion and stenosis of right carotid artery; Z90.710 Acquired absence of both cervix and uterus; E11.21 Type 2 diabetes mellitus with diabetic nephropathy; Z88.2 Allergy status to sulfonamides; Z88.6 Allergy status to analgesic agent; Z88.8 Allergy status to other drugs, medicaments and biological substances; Z85.038 Personal history of other malignant neoplasm of large intestine; Z98.62 Peripheral vascular angioplasty status; Z90.722 Acquired absence of ovaries, bilateral; Z82.49 Family history of ischemic heart disease and other diseases of the circulatory system; Z79.82 Long term (current) use of aspirin; Z79.899 Other long term (current) drug therapy
CPT/HCPCS: 10078; 10081; 47000; 47001; 47002; 47297; 48888; 50010; 50011; 50249; 50409; 50456; 50498; 50668; 50951; 51301; 52131; 52259; 53327; 53358; 54118; 56524; 56525; 56526; 56527; 56528; 56531; 56534; 56639; 56660; 56898; 57093; 62110; 62950; 64029; 65002; 65003; 65020; 65043; 65090; 85076

== ENCOUNTER → 2017-02-02 | Outpatient (CLI) | payer OTHER ==
[~2017-02-02] MED LIST changes: +LOPRESSOR25 PO; +METFORMIN HCL500 MG PO; +PACERONE 200 M200 M1 PO
== END ==
LOC: LABMALL 09:13
DX: R10.11 Right upper quadrant pain (principal)

== ENCOUNTER → 2017-02-12 | Outpatient (CLI) | payer OTHER | LOC: RAD 10:53 | DX: Z98.890 Other specified postprocedural states (principal) ==

== ENCOUNTER → 2017-02-26 | Outpatient (CLI) | payer OTHER | LOC: NUC 09:36 | DX: R10.11 Right upper quadrant pain (principal) ==

== ENCOUNTER → 2017-03-09 | Outpatient (CLI) | payer OTHER ==
[2017-03-09 09:01] LABS: CREATININE 0.8 mg/dL (0.6-1.0)
== END ==
LOC: CAT 08:22
PROVIDERS: Internal Medicine
DX: Z01.818 Encounter for other preprocedural examination (principal)

== ENCOUNTER 2017-03-20 05:08 | Day surgery (SDC) | payer OTHER ==
[~2017-03-20] VITALS: Ht 160 cm; Wt 64.0 kg
--- NOTE | ~2017-03-20 | H ---
[facility] [place] [address] HISTORY AND PHYSICAL Name: EVETTE BROTHERS Room #: 150-4 [facility] M.R.#: [id number] Admission: 03/20/17 Attend Phys: Farhat Salvador MD Discharge: Date of : 42 Report #: [id number] THIS REPORT FOR: //name// CC: KANDIS Salvador PREOPERATIVE DIAGNOSES: 1. Cholecystitis, acalculous. 2. Biliary dyskinesia. HISTORY OF PRESENT ILLNESS: The patient is a 76-year-old who has been complaining of abdominal pain and difficulty with eating. The patient underwent coronary artery bypass graft on January [address] Scanlon. Two weeks after surgery, she had a very poor appetite and having nausea. She vomited once. She was put on Zofran, which did not seem to help. She is complaining of epigastric pain now after eating. [place] food is worse. [place] food also causes pain in the left upper quadrant, right upper quadrant, also into her back. She has had bloating, history. The patient also has alternating diarrhea and constipation. She had a ____ recently that made her really uncomfortable. The patient had an ultrasound performed on February 02, she was noted to have sludge in her gallbladder. CT scan was performed recently, which was unremarkable. The patient also had an EGD on February 24 and she had a polyp in her stomach, but no explanation for her symptom. The patient had a PIPIDA scan that showed a 90% gallbladder ejection fraction. She did have a dull pain in the right upper quadrant with the Kinevac injection. The patient was felt to have gallbladder disease, recommended to have her gallbladder removed. Granddaughter had gallbladder surgery. The patient was recommended to have laparoscopic cholecystectomy. PAST MEDICAL HISTORY: Coronary artery disease status post CABG on January 02, history of diabetes type 2, high blood pressure. MEDICATIONS: The patient is on metoprolol 25 daily; valsartan 160 daily; atorvastatin 80 daily; metformin 1000 twice a day; omeprazole 20 mg, she has been on that for a long time for "hiatal hernia, heart burn;" one a day vitamin, calcium, CoQ10, ____ aspirin 81 mg. ALLERGIES: LIBRAX, hands get red and swollen. CODEINE causes GI upset. BACTRIM across nausea. PAST SURGICAL HISTORY: Had a bladder cancer removed, had hysterectomy in 2014. FAMILY HISTORY: There is heart disease in the family. Brother from heart attack at age 55. 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 REVIEW OF SYSTEMS: The patient has Meniere's, also lower back pain. No chest pain, shortness of breath. She is going through cardiac rehabilitation and doing well with it. PHYSICAL EXAMINATION: GENERAL: The patient is an elderly female in no acute distress. HEENT: Sclerae is nonicteric. Pupils react to light. Extraocular muscles are intact. NECK: Soft and supple, no JVD. LUNGS: Clear to auscultation. HEART: Regular rate and rhythm. No murmur or gallop. She has healed well from her surgery. ABDOMEN: She does have moderate tenderness in right upper quadrant. No mass, no ascites. No guarding, rigidity. Abdomen soft. EXTREMITIES: No cyanosis, clubbing or edema. The patient moves all extremities well. His motor function and sensation is intact. IMPRESSION AND PLAN: The patient is a 76-year-old who has had a couple of months of difficulty with inability to eat and epigastric pain. Gallbladder ultrasound shows sludge. She has not been fasting. Her PIPIDA scan reproduced her pain. She had a very high ejection fraction with the Kinevac injection. She does have greasy food intolerance. Her symptoms do sound like gallbladder disease. The patient is recommended gallbladder removed. Laparoscopic cholecystectomy was discussed in detail. Risk of bleeding, infection, common bile duct injury was discussed. I did speak with her rabbit fancier, who felt that she is a good candidate for laparoscopic cholecystectomy. The patient is here for surgery. By: 0848 [id number] Farhat Salvador MD /nt
--- NOTE | ~2017-03-20 | O ---
[facility] [place] [address] OPERATIVE REPORT Name: EVETTE BROTHERS Room #: 439-P [facility] M.R.#: [id number] Admission: 03/20/17 Attend Phys: Farhat Salvador MD Discharge: Date of : 42 Report #: [id number] THIS REPORT FOR: //name// CC: Delvin Salvador DATE OF SERVICE: 03/20/2017 PREOPERATIVE DIAGNOSIS: Cholecystitis, acalculous. POSTOPERATIVE DIAGNOSIS: Cholecystitis with soft gallstones. PROCEDURE PERFORMED: Laparoscopic cholecystectomy with cholangiogram. COMPLICATIONS: None. BLOOD LOSS: 10 mL. SURGEON: Farhat Salvador MD ANESTHESIA: General anesthesia. DESCRIPTION OF PROCEDURE: With the patient under general anesthesia, timeout was performed. Abdomen was prepped and draped in sterile fashion. A 0.25% Marcaine was used to anesthetize the skin. A 2.5 cm incision was made infraumbilically. Fascia was then identified, grasped with hemostat. Fascia was then opened under visualization. A 0 Vicryl suture was placed on the fascia edges for retraction. With the abdominal wall lifted anteriorly, Veress needle was then placed through peritoneum. Abdominal cavity was insufflated by CO2. After creating pneumoperitoneum, 11 mm trocar was placed through peritoneum under visualization. No harm to any underlying tissue. The intestine is mostly not visible due to the omentum covering everything. The gallbladder is identified. Two 5 mm trocars were placed in the right upper quadrant, another 5 mm trocar placed in right epigastrium. Gallbladder was lifted over the liver. A portion of the common duct was visualized. Peritoneum over the cystic duct was dissected free. The cystic duct was isolated. A clip was placed in junction of cystic duct to the gallbladder; opening was made in the cystic duct. Cholangiogram catheter was inserted. Fluoroscopic cholangiogram was obtained. Common bile duct filled out well. No filling defect. The cholangiogram catheter was identified in the cystic duct. No harm to common duct was seen. The catheter was then removed. The proximal cystic duct was clipped x 2. Cystic duct was then divided. Cystic artery was already divided. Two branches were identified. These were individually clipped x 2 proximally and 1 distally and then divided. Gallbladder was freed from the liver bed. There was medially [address] [address] OPERATIVE REPORT Name: EVETTE BROTHERS Room #: 439-P [facility]..#: [id number] Admission: 03/20/17 Attend Phys: Farhat Salvador MD Discharge: Date of : 42 Report #: [id number] ____ proximal part of the gallbladder did not really have much of a plane. It was partially removed from the liver bed. The rest of the plane was able to be found and this was divided through this plane to the avascular plane. Hemostasis was obtained. A small piece of Surgicel fibrillar was placed on the liver bed. Irrigation was performed. No bleeding was identified. Irrigation fluid was aspirated out. Gallbladder was opened off the field and there was numerous what looks like soft stones in the gallbladder. These measured about 3 to 4 mm to about a cm. This is more than just sludge. There is also cholesterolosis in the wall. Trocars were removed. CO2 was evacuated. The infraumbilical fascia defect was closed with [id number] 0 Vicryl x 2. Skin was irrigated. Skin was closed with 5-0 PDS. Steri-Strip, Band-Aids applied. The patient tolerated the procedure well and was taken to recovery room. By: [id number] Farhat Salvador MD /nt
[~2017-03-20 05:08] MED LIST changes: +CRANBERRY500 MG PO
[2017-03-20 12:35] LABS: HEMATOCRIT 36.3 % (37.0-47.0); HEMOGLOBIN 12.4 gm/dL (12.0-15.0); MCH 30.5 pg (26.0-34.0); MCHC 34.1 g/dL (28.0-37.0); MCV 89.4 fL (80.0-100.0); RBC 4.06 mil/uL (4.20-5.00); WBC 4.7 thou/uL (4.0-11.0)
[2017-03-20 12:36] VITALS: BP 146/77
[2017-03-20 17:07] VITALS: BP 146/82
[2017-03-20 19:35] VITALS: BP 166/77
[2017-03-21 05:53] VITALS: BP 136/63
[2017-03-21 08:55] VITALS: BP 168/71
[2017-03-21] MEDS ORDERED: NORCO 5-325 TA1 EACH PO (11:26)
[2017-03-21 12:02] VITALS: BP 168/71
== END 2017-03-21 13:43 | disposition home or self-care (01) ==
LOC: OR 05:08 → TBA 05:08 → OR 08:44 → 4S 17:02 → OR 03-21 13:43
PROVIDERS: Surgery
DX: K80.18 Calculus of gallbladder with other cholecystitis without obstruction (principal); I25.10 Atherosclerotic heart disease of native coronary artery without angina pectoris; E11.9 Type 2 diabetes mellitus without complications; R31.0 Gross hematuria; E87.0 Hyperosmolality and hypernatremia; R80.8 Other proteinuria; R33.8 Other retention of urine; I10 Essential (primary) hypertension; E78.00 Pure hypercholesterolemia, unspecified; H81.09 Meniere's disease, unspecified ear; Z85.51 Personal history of malignant neoplasm of bladder; Z95.1 Presence of aortocoronary bypass graft
CPT/HCPCS: 50010; 50101; 50411; 50555; 50558; 51489; 53307; 53310; 55245; 55317; 56462; 56525; 56526; 56639; 70005

== ENCOUNTER → 2018-01-14 | Outpatient (CLI) | payer OTHER ==
[~2018-01-14] MED LIST changes: +NORCO 5-325 TA1 EACH PO
== END ==
LOC: CAT 06:02
DX: C67.9 Malignant neoplasm of bladder, unspecified (principal); R10.817 Generalized abdominal tenderness; Z90.49 Acquired absence of other specified parts of digestive tract; Z90.710 Acquired absence of both cervix and uterus

== ENCOUNTER → 2018-12-17 | Outpatient (CLI) | payer OTHER ==
--- NOTE | 2018-12-17 12:28 | 2DMMODE ---
[facility] [place] [address] 2 D/M-MODE ECHOCARDIOGRAM Name: EVETTE BROTHERS Room #: REG [facility]#: [id number] ������������� Admission: 12/17/18 ������������� Attend Phys: Delvin Tai Discharge: ��� ������������� ��� Date of : 44 Date of Service: 12/17/18 1227 �� Report #: [id number] �������� ��������������������������������������������[id number] THIS REPORT FOR: //name// APPROVED REPORT Study performed: 12/17/2018 11:20:46 EXAM: Comprehensive 2D, Doppler, and color-flow Echocardiogram Patient Location: Out-Patient Room #: Echo lab 2 Status: routine BSA: 1.69 HR: 63 bpm BP: 160/88 mmHg Rhythm: NSR Other Information Study Quality: Adequate Indications CAD 2D Dimensions RVDd: 26.54 mm IVSd: 11.17 (7-11mm) LVOT Diam: 18.20 (18-24mm) LVDd: 31.44 mm PWd: 10.88 (7-11mm) Ascending Ao: 26.54 (22-36mm) LVDs: 21.51 (25-40mm) Aortic Root: 26.24 mm IVC: 12.00 mm Volumes Left Atrial Volume (Systole) Single Plane 4CH: 46.84 mL Single Plane 2CH: 38.13 mL LA ESV Index: 28.00 mL/m2 Aortic Valve AoV Peak Ananda.: 3.96 m/s AO Peak Gr.: 62.66 mmHg LVOT Max P.60 mmHg AO Mean Gr.: 37.75 mmHg LVOT Mean P.65 mmHg AO V2 Mean: 2.90 m/s LVOT Max V: 1.07 m/s AO V2 VTI: 101.69 cm LVOT Mean V: 0.76 m/s CHRISTY (VTI): 0.70 cm2 LVOT V1 VTI: 27.21 cm CHRISTY Vmax: 0.70 cm2 AI Vmax: 4.71 m/s SV (LVOT): 70.78 mL AI Ward: 2.86 m/s2 [facility] [address] [place] [address] 2 D/M-MODE ECHOCARDIOGRAM Name: EVETTE BROTHERS [place] Room #: [facility]#: [id number] ������������� Admission: 12/17/18 ������������� Attend Phys: Delvin Tai Discharge: ��� ������������� ��� Date of : 44 Date of Service: 12/17/18 1227 �� Report #: [id number] �������� ��������������������������������������������[id number] AI PHT: 482.06 ms Mitral Valve E/A Ratio: 0.9 MV Decel. Time: 216.04 ms MV E Max Ananda.: 1.18 m/s MV A Ananda.: 1.29 m/s MV PHT: 62.65 ms IVRT: 124.57 ms Pulmonary Valve PV Peak Ananda.: 1.25 m/s PV Peak Gr.: 6.26 mmHg Pulmonary Vein P Vein S: 0.64 m/s P Vein A: 0.32 m/s P Vein D: 0.31 m/s P Vein A Dur.: 120.0 msec P Vein S/D Ratio: 2.06 Tricuspid Valve TR Peak Ananda.: 2.47 m/s TR Peak Gr.: 24.39 mmHg PA Pressure: 29.00 mmHg Left Ventricle The left ventricle is normal size. There is normal LV segmental wall motion. There is normal left ventricular wall thickness. The left ventricular systolic function is normal. The left ventricular ejection fraction is within the normal range. LVEF is 55-60%. Grade I - abnormal relaxation pattern. Right Ventricle The right ventricle is normal size. The right ventricular systolic function is normal. Atria The left atrium size is normal. The right atrium size is normal. Aortic Valve The aortic valve is normal in structure. Aortic valve is calcified. Mild aortic regurgitation. Severe aortic stenosis. Mitral Valve The mitral valve is normal in structure. Mild mitral regurgitation. No evidence of mitral valve stenosis. [address] [address] 2 D/M-MODE ECHOCARDIOGRAM Name: EVETTE BROTHERS Room #: REG [facility]#: [id number] ������������� Admission: 12/17/18 ������������� Attend Phys: Delvin Tai Discharge: ��� ������������� ��� Date of : 44 Date of Service: 12/17/18 1227 �� Report #: [id number] �������� ��������������������������������������������[id number] Tricuspid Valve The tricuspid valve is normal in structure. There is mild tricuspid regurgitation. Estimated PAP 29 mmHg. There is no pulmonary hypertension. Pulmonic Valve The pulmonary valve is normal in structure. There is no pulmonic valvular regurgitation. Great Vessels The aortic root is normal in size. IVC is normal in size and collapses >50% with inspiration. Pericardium There is no pericardial effusion. <Conclusion> The left ventricle is normal size. LVEF is 55-60%. The aortic valve is normal in structure. Aortic valve is calcified. Mild aortic regurgitation. Severe aortic stenosis. The mitral valve is normal in structure. Mild mitral regurgitation. The tricuspid valve is normal in structure. There is mild tricuspid regurgitation. Estimated PAP 29 mmHg. There is no pulmonary hypertension. The pulmonary valve is normal in structure. There is no pericardial effusion. ��������������������������������������������� <ELECTRONICALLY SIGNED> ���������������������������������������� By: Delvin Perez MD ��������������������������������������������� 12/17/18 1227 1227 1227 Delvin Perez MD /INF
== END ==
LOC: CV 07:30
DX: I08.3 Combined rheumatic disorders of mitral, aortic and tricuspid valves (principal); I25.10 Atherosclerotic heart disease of native coronary artery without angina pectoris

== ENCOUNTER 2019-05-26 16:34 | Emergency (ER) | payer OTHER ==
[~2019-05-26] VITALS: Ht 154.9 cm; Wt 66.7 kg
[2019-05-26 17:02] LABS: ABSOLUTE NEUTROPHILS 3.6 thou/uL (1.4-8.2); BASOPHILS 0.7 % (0.0-2.0); EOSINOPHILS 3.1 % (0.0-3.0); HEMATOCRIT 34.6 % (37.0-47.0); HEMOGLOBIN 11.7 gm/dL (12.0-15.0); LYMPHOCYTES 26.4 % (24.0-44.0); MCHC 33.9 g/dL (28.0-37.0); MCV 91.4 fL (80.0-100.0); MONOCYTES 9.4 % (1.0-8.0); PLATELET COUNT 189 thou/uL (150-400); POLYS 60.4 % (36.0-66.0); RBC 3.79 mil/uL (4.20-5.00); RDW 13.6 % (10.5-14.5); WBC 5.9 thou/uL (4.0-11.0)
[2019-05-26 17:11] LABS: ANION GAP 8 mmol/L (7-16); BUN 14 mg/dL (7-18); CALCIUM 9.5 mg/dL (8.5-10.1); CHLORIDE 95 mmol/L (98-107); CO2 27 mmol/L (21-32); GLUCOSE 152 mg/dL (74-106); POTASSIUM 3.9 mmol/L (3.5-5.1); SODIUM 130 mmol/L (136-145)
[2019-05-26 17:19] LABS: TROPONIN-I <0.06 ng/mL (<0.06)
[2019-05-26 18:16] LABS: APTT 37.4 Seconds (24.5-32.8); PROTIME 10.8 Seconds (9.3-11.4)
[2019-05-26] MEDS ORDERED: MAG-OXIDE400 MG PO ×3 (18:31→18:36)
[2019-05-26 18:53] VITALS: BP 136/62
--- NOTE | 2019-05-27 08:43 | EKG ---
[place] [address] [facility] [place] [address] ELECTROCARDIOGRAM REPORT Name: EVETTE BROTHERS Room #: [facility]#: [id number] Admission: 05/26/19 Attend Phys: Discharge: 05/26/19 Date of : 44 Report #: [id number] THIS REPORT FOR: //name// [facility] ED Test Date: 2019-05-26 Test Time: 16:34:32 Pat Name: EVETTE BROTHERS Department: Room: Gender: F Preschool Director: NIGEL : 1940 Requested By: Mary Johnson Order Number: [id number] MD: Cedrick Causey Measurements Intervals [place] Rate: 78 P: 43 [place]: 188 QRS: -32 QRSD: 147 T: 117 QT: 407 QTc: 464 Interpretive Statements Sinus rhythm Left bundle branch block Compared to ECG 01/03/2017 07:45:49 Left bundle-branch block now present Electronically Signed On 05-27-2019 8:43:27 CDT by Cedrick Causey [email or web address] <ELECTRONICALLY SIGNED> By: Cedrick Causey MD, [facility] 05/27/19 0843 1634 1634 Cedrick Causey MD, FACC /EPI
== END 2019-05-26 18:53 | disposition home or self-care (01) ==
LOC: ER 16:34
PROVIDERS: Emergency Medicine; Physician Assistant
DX: R07.89 Other chest pain (principal); I49.3 Ventricular premature depolarization; I49.1 Atrial premature depolarization; I12.9 Hypertensive chronic kidney disease with stage 1 through stage 4 chronic kidney disease, or unspecified chronic kidney disease; E11.22 Type 2 diabetes mellitus with diabetic chronic kidney disease; N18.1 Chronic kidney disease, stage 1; E78.5 Hyperlipidemia, unspecified; E83.42 Hypomagnesemia; K21.9 Gastro-esophageal reflux disease without esophagitis; Z85.51 Personal history of malignant neoplasm of bladder; Z90.710 Acquired absence of both cervix and uterus; Z85.820 Personal history of malignant melanoma of skin; Z86.2 Personal history of diseases of the blood and blood-forming organs and certain disorders involving the immune mechanism; Z90.49 Acquired absence of other specified parts of digestive tract; Z88.2 Allergy status to sulfonamides; Z88.6 Allergy status to analgesic agent; Z88.8 Allergy status to other drugs, medicaments and biological substances; Z91.048 Other nonmedicinal substance allergy status

== ENCOUNTER → 2019-11-30 | Outpatient (CLI) | payer OTHER ==
[~2019-11-30] MED LIST changes: +MAG-OXIDE400 MG PO
== END ==
LOC: SJCVC 16:17
DX: I35.0 Nonrheumatic aortic (valve) stenosis (principal); I10 Essential (primary) hypertension; E78.5 Hyperlipidemia, unspecified; I73.9 Peripheral vascular disease, unspecified

== ENCOUNTER → 2020-01-04 | Outpatient (CLI) | payer OTHER | LOC: ULTRA 08:50 | DX: I65.23 Occlusion and stenosis of bilateral carotid arteries (principal); I25.10 Atherosclerotic heart disease of native coronary artery without angina pectoris ==

== ENCOUNTER → 2020-07-25 | Outpatient (CLI) | payer OTHER | LOC: SJCVCIMAG 09:39 | PROVIDERS: ATTEND Internal Medicine | DX: I25.10 Atherosclerotic heart disease of native coronary artery without angina pectoris (principal); I49.3 Ventricular premature depolarization; I10 Essential (primary) hypertension; E78.00 Pure hypercholesterolemia, unspecified; Z79.899 Other long term (current) drug therapy ==